=== PATIENT | female | born 1995 | race Caucasian/White ===

== ENCOUNTER 2021-02-16 07:29 | Emergency (ER) | payer BC ==
[2021-02-16] MEDS ORDERED: Ketorolac Tromethamine 30 MG/ML VIAL ONE (09:24)
== END 2021-02-16 12:49 | disposition home or self-care (01) ==
LOC: ERS 07:29
DX: S39.012A Strain of muscle, fascia and tendon of lower back, initial encounter (principal); X50.9XXA Other and unspecified overexertion or strenuous movements or postures, initial encounter
CPT/HCPCS: 96372; 99283; J1885

== ENCOUNTER 2021-02-24 15:25 | Outpatient (CLI) | payer BC | END 2021-02-24 15:26 | disposition home or self-care (01) | LOC: SCSMRI 15:25 | PROVIDERS: ATTEND Specialist | DX: M51.16 Intervertebral disc disorders with radiculopathy, lumbar region (principal); M51.27 Other intervertebral disc displacement, lumbosacral region | CPT/HCPCS: 72148 ==